=== PATIENT | male | born 1950 | race African-American/Black ===

== ENCOUNTER 2017-02-18 11:39 | Emergency (ER) | payer OTHER, BC ==
[~2017-02-18] VITALS: Ht 180.3 cm; Wt 138.2 kg
[2017-02-18 12:13] LABS: POINT-OF-CARE METER ID UU13113778; POINT-OF-CARE USER ID NUTJLF39
[2017-02-18 14:43] LABS: HEMATOCRIT 37.8 % (38.0-50.0); MCH 28.2 PG (29.0-34.0); MCHC 32.5 G/DL (30.0-36.0); MCV 86.7 FL (86-99); MEAN PLAT.VOLUME 9.2 uM^3 (9.0-12.4); PLATELET COUNT 296 K/uL (156-360); RBC DIS.WIDTH-CV 13.9 % (11.8-14.6); RBC DIS.WIDTH-SD 44.5 % (39-53); RED BLOOD COUNT 4.36 M/uL (4.00-5.50); WHITE BLOOD COUNT 6.5 K/uL (4.1-10.2)
[2017-02-18 14:55] LABS: INTER. NORMALIZED RATIO 1.1; PROTHROMBIN TIME 10.8 (9.2-11.2)
[2017-02-18 15:00] LABS: LIPASE 34 U/L (1.0-51.0)
[2017-02-18 15:04] LABS: TROP-I INTERPRETATION NEGATIVE; TROPONIN-I 0.01 ng/mL (0.0-0.30)
[2017-02-18 15:09] LABS: CHLORIDE 103 mEq/L (99-109); POTASSIUM 4.1 mEq/L (3.7-5.4); SODIUM 140 mEq/L (136-147)
[2017-02-18 15:12] LABS: ANION GAP 10 MEQ/L (2-14)
[2017-02-18 15:13] LABS: TOTAL BILIRUBIN 0.6 mg/dL (0.0-1.0)
[2017-02-18 15:15] LABS: ALKALINE PHOSPHATASE 61 IU/L (3-129); GFR ESTIMATE (CALCULATED) 52 mL/min/; GLUCOSE 77 mg/dL (70-99)
[2017-02-18 15:16] LABS: UREA NITROGEN (BUN) 21 mg/dL (9-23)
[2017-02-18 17:28] VITALS: BP 143/87
== END 2017-02-18 17:51 | disposition home or self-care (01) ==
LOC: EME 11:39
PROVIDERS: Emergency Medicine
DX: E11.65 Type 2 diabetes mellitus with hyperglycemia (principal); M79.605 Pain in left leg; Z79.4 Long term (current) use of insulin; Z86.718 Personal history of other venous thrombosis and embolism; R11.0 Nausea; R60.0 Localized edema
CPT/HCPCS: 71010; 80053; 82948; 83690; 84484; 85027; 85610; 93005; 93971; 94640; 99281; 99284

== ENCOUNTER 2017-03-28 05:54 | Emergency (ER) | payer OTHER, BC ==
[~2017-03-28] VITALS: Ht 185.4 cm; Wt 138.0 kg
[2017-03-28 06:46] LABS: EOSINOPHIL (%) 4.4 % (0-5); EOSINOPHIL COUNT 0.2 K/uL (0-0.3); HEMATOCRIT 35.1 % (38.0-50.0); IMMATURE GRANULOCYTE (%) 0.2 % (0.0-0.7); INSTRUMENT ABS NEUTROPHIL CT 2.6 K/uL; LYMPHOCYTE COUNT 1.9 K/uL (1.0-2.8); MCH 28.9 PG (29.0-34.0); MCHC 33.9 G/DL (30.0-36.0); MCV 85.2 FL (86-99); MEAN PLAT.VOLUME 9.1 uM^3 (9.0-12.4); MONOCYTE (%) 10.8 % (3-12); MONOCYTE COUNT 0.6 K/uL (0-0.8); NEUTROPHIL (%) 48.5 % (45-76); NEUTROPHIL COUNT 2.6 K/uL (1.8-6.4); PLATELET COUNT 270 K/uL (156-360); RBC DIS.WIDTH-CV 13.6 % (11.8-14.6); RBC DIS.WIDTH-SD 42.9 % (39-53); RED BLOOD COUNT 4.12 M/uL (4.00-5.50); WHITE BLOOD COUNT 5.4 K/uL (4.1-10.2)
[2017-03-28 07:20] LABS: ANION GAP 11 MEQ/L (2-14); CHLORIDE 102 MEQ/L (99-109); GFR ESTIMATE (CALCULATED) 41 mL/min/; GLUCOSE 181 mg/dL (70-99); POTASSIUM 4.1 MEQ/L (3.7-5.4); SAMPLE HEMOLYSIS CHECK 0; SAMPLE ICTERIC CHECK 0; SAMPLE LIPEMIA CHECK 0; SODIUM 136 MEQ/L (136-147); UREA NITROGEN (BUN) 34 mg/dL (9-23); URIC ACID 8.8 mg/dL (3.1-9.2)
[2017-03-28] MEDS ORDERED: PERCOCET 5/31 TABLET PO (08:04)
[2017-03-28 08:19] VITALS: BP 128/83
== END 2017-03-28 08:30 | disposition home or self-care (01) ==
LOC: EME 05:54
PROVIDERS: Emergency Medicine
DX: M17.12 Unilateral primary osteoarthritis, left knee (principal); I10 Essential (primary) hypertension; E11.9 Type 2 diabetes mellitus without complications; Z88.0 Allergy status to penicillin
CPT/HCPCS: 73564; 80048; 84550; 85025; 99281; 99283

== ENCOUNTER 2017-04-04 20:22 | Emergency (ER) | payer OTHER, BC ==
[~2017-04-04] VITALS: Ht 185.4 cm; Wt 138.1 kg
[~2017-04-04 20:22] MED LIST: PERCOCET 5/31 TABLET PO
[2017-04-04 22:08] LABS: HEMATOCRIT 36.7 % (38.0-50.0); MCH 28.7 PG (29.0-34.0); MCHC 33.5 G/DL (30.0-36.0); MCV 85.7 FL (86-99); MEAN PLAT.VOLUME 9.4 uM^3 (9.0-12.4); PLATELET COUNT 299 K/uL (156-360); RBC DIS.WIDTH-CV 13.3 % (11.8-14.6); RBC DIS.WIDTH-SD 41.9 % (39-53); RED BLOOD COUNT 4.28 M/uL (4.00-5.50); WHITE BLOOD COUNT 7.2 K/uL (4.1-10.2)
[2017-04-04 22:20] LABS: CHLORIDE 106 mEq/L (99-109); POTASSIUM 4.6 mEq/L (3.7-5.4); SODIUM 137 mEq/L (136-147)
[2017-04-04 22:22] LABS: GLUCOSE 128 mg/dL (70-99)
[2017-04-04 22:23] LABS: ANION GAP 8 MEQ/L (2-14)
[2017-04-04 22:24] LABS: TOTAL BILIRUBIN 0.2 mg/dL (0.0-1.0)
[2017-04-04 22:26] LABS: ALKALINE PHOSPHATASE 58 IU/L (3-129); GFR ESTIMATE (CALCULATED) 43 mL/min/
[2017-04-04 22:27] LABS: UREA NITROGEN (BUN) 29 mg/dL (9-23)
[2017-04-04 22:29] LABS: URIC ACID 8.6 mg/dL (3.1-9.2)
[2017-04-05 01:08] VITALS: BP 137/79
[2017-04-05 02:17] LABS: C-REACTIVE PROTEIN 16.8 MG/L (0-10)
== END 2017-04-05 01:21 | disposition home or self-care (01) ==
LOC: EME 20:22
PROVIDERS: Physician Assistant
DX: M71.22 Synovial cyst of popliteal space [Baker], left knee (principal); N28.9 Disorder of kidney and ureter, unspecified; E78.5 Hyperlipidemia, unspecified; I10 Essential (primary) hypertension
CPT/HCPCS: 80053; 84550; 85027; 86140; 93971; 99281; 99285; J2270; J2405; S0020

== ENCOUNTER 2017-04-09 15:07 | Emergency (ER) | payer OTHER, BC ==
[~2017-04-09] VITALS: Ht 182.9 cm; Wt 132.7 kg
[2017-04-09 15:55] LABS: HEMATOCRIT 35.5 % (38.0-50.0); MCH 28.6 PG (29.0-34.0); MCHC 33.8 G/DL (30.0-36.0); MCV 84.5 FL (86-99); MEAN PLAT.VOLUME 9.5 uM^3 (9.0-12.4); PLATELET COUNT 259 K/uL (156-360); RBC DIS.WIDTH-CV 13.2 % (11.8-14.6); RBC DIS.WIDTH-SD 40.7 % (39-53); WHITE BLOOD COUNT 7.3 K/uL (4.1-10.2)
[2017-04-09 16:07] LABS: INTER. NORMALIZED RATIO 1.1; PROTHROMBIN TIME 11.4 (9.2-11.2)
[2017-04-09 16:21] LABS: ANION GAP 13 MEQ/L (2-14); CHLORIDE 103 MEQ/L (99-109); GFR ESTIMATE (CALCULATED) 52 mL/min/; GLUCOSE 216 mg/dL (70-99); SAMPLE HEMOLYSIS CHECK 0; SAMPLE ICTERIC CHECK 0; SAMPLE LIPEMIA CHECK 0; SODIUM 136 MEQ/L (136-147); UREA NITROGEN (BUN) 18 mg/dL (9-23)
[2017-04-09 16:24] LABS: POTASSIUM 3.4 MEQ/L (3.7-5.4)
[2017-04-09 16:26] LABS: TROP-I INTERPRETATION NEGATIVE; TROPONIN-I 0.01 ng/mL (0.0-0.30)
[2017-04-09 16:44] LABS: D-DIMER ELISA 1.64 mg/L FEU (< 0.57)
[2017-04-09] MEDS ORDERED: LEVAQUIN750 MG PO (18:47)
[2017-04-09 19:10] VITALS: BP 158/78
== END 2017-04-09 19:11 | disposition home or self-care (01) ==
LOC: EME 15:07
PROVIDERS: Emergency Medicine
DX: J18.9 Pneumonia, unspecified organism (principal); E78.5 Hyperlipidemia, unspecified; I10 Essential (primary) hypertension
CPT/HCPCS: 71020; 71275; 80048; 84484; 85027; 85379; 85610; 85730; 93005; 99281; 99285; J7030; J7644

== ENCOUNTER 2017-04-10 15:43 | Observation (INO) | payer OTHER, BC ==
[~2017-04-10] VITALS: Ht 185.4 cm; Wt 131.8 kg
[~2017-04-10 15:43] MED LIST changes: +LEVAQUIN750 MG PO
[2017-04-10 16:23] LABS: HEMATOCRIT 34.8 % (38.0-50.0); MCH 28.5 PG (29.0-34.0); MCHC 33.9 G/DL (30.0-36.0); MCV 84.1 FL (86-99); MEAN PLAT.VOLUME 9.2 uM^3 (9.0-12.4); PLATELET COUNT 269 K/uL (156-360); RBC DIS.WIDTH-CV 13.2 % (11.8-14.6); RED BLOOD COUNT 4.14 M/uL (4.00-5.50); WHITE BLOOD COUNT 8.1 K/uL (4.1-10.2)
[2017-04-10 16:24] LABS: CHLORIDE 109 mEq/L (99-109)
[2017-04-10 16:28] LABS: ANION GAP 14 MEQ/L (2-14)
[2017-04-10 16:30] LABS: ALKALINE PHOSPHATASE 52 IU/L (3-129); GFR ESTIMATE (CALCULATED) 43 mL/min/
[2017-04-10 16:31] LABS: UREA NITROGEN (BUN) 17 mg/dL (9-23)
[2017-04-10 16:34] LABS: GLUCOSE 73 mg/dL (70-99); POTASSIUM 4.2 mEq/L (3.7-5.4); SODIUM 143 mEq/L (136-147); TOTAL BILIRUBIN 0.6 mg/dL (0.0-1.0)
[2017-04-10 16:36] LABS: TROP-I INTERPRETATION NEGATIVE; TROPONIN-I 0.01 ng/mL (0.0-0.30)
[2017-04-10 21:58] LABS: IRON 73 MCG/DL (35-150)
[2017-04-10 22:11] VITALS: BP 134/79
[2017-04-10 22:35] LABS: POINT-OF-CARE METER ID UU13113831
[2017-04-11 00:07] LABS: TROP-I INTERPRETATION NEGATIVE; TROPONIN-I < 0.01 ng/mL (0.0-0.30)
[2017-04-11 04:40] VITALS: BP 139/70
[2017-04-11 05:17] LABS: TROP-I INTERPRETATION NEGATIVE; TROPONIN-I < 0.01 ng/mL (0.0-0.30)
[2017-04-11 05:49] LABS: HEMATOCRIT 31.2 % (38.0-50.0); MCH 29.8 PG (29.0-34.0); MCHC 34.6 G/DL (30.0-36.0); MCV 86.2 FL (86-99); MEAN PLAT.VOLUME 9.8 uM^3 (9.0-12.4); PLATELET COUNT 241 K/uL (156-360); RBC DIS.WIDTH-CV 13.6 % (11.8-14.6); RBC DIS.WIDTH-SD 42.8 % (39-53); RED BLOOD COUNT 3.62 M/uL (4.00-5.50)
[2017-04-11 06:33] LABS: ANION GAP 9 MEQ/L (2-14); CHLORIDE 105 MEQ/L (99-109); GFR ESTIMATE (CALCULATED) 35 mL/min/; POTASSIUM 3.8 MEQ/L (3.7-5.4); SAMPLE HEMOLYSIS CHECK 0; SAMPLE ICTERIC CHECK 0; SAMPLE LIPEMIA CHECK 0; SODIUM 137 MEQ/L (136-147); UREA NITROGEN (BUN) 21 mg/dL (9-23)
[2017-04-11 06:34] LABS: GLUCOSE 160 mg/dL (70-99)
[2017-04-11 08:18] LABS: POINT-OF-CARE METER ID UU14162513
[2017-04-11 08:42] VITALS: BP 137/71
[2017-04-11 10:55] LABS: HEMATOCRIT 31.8 % (38.0-50.0); MCV 86.4 FL (86-99)
[2017-04-11] MEDS ORDERED: CYANOCOBALAM1000 MCG PO (11:09)
[2017-04-11] MEDS ORDERED: VITAMIN B-6100 MG PO (11:09)
[2017-04-11] MEDS ORDERED: TRAMADOL HCL50 MG PO (11:10)
[2017-04-11] MEDS ORDERED: ADVAIR 250/501 DISK PO (11:11)
[2017-04-11] MEDS ORDERED: LOPRESSOR25 MG PO (11:12)
[2017-04-11] MEDS ORDERED: LANTUS 10100 UNITS/ SQ (11:12)
[2017-04-11] MEDS ORDERED: SENNA LAXATIVE25 MG PO (11:13)
[2017-04-11] MEDS ORDERED: ZYRTEC10 M2 PO (11:15)
[2017-04-11] MEDS ORDERED: SERTRALINE HCL50 MG PO (11:16)
[2017-04-11] MEDS ORDERED: IMDUR30 MG PO (11:17)
[2017-04-11] MEDS ORDERED: SIMVASTATIN40 MG PO (11:17)
[2017-04-11] MEDS ORDERED: ZAFIRLUKAST20 M1 PO (11:18)
[2017-04-11] MEDS ORDERED: LOSARTAN POTAS100 MG PO (11:19)
[2017-04-11] MEDS ORDERED: CLOPIDOGREL75 MG PO (11:19)
[2017-04-11] MEDS ORDERED: REPAGLINIDE1 MG PO (11:21)
[2017-04-11 11:22] LABS: ANION GAP 9 MEQ/L (2-14); CHLORIDE 105 MEQ/L (99-109); GFR ESTIMATE (CALCULATED) 37 mL/min/; GLUCOSE 211 mg/dL (70-99); POTASSIUM 4.2 MEQ/L (3.7-5.4); SAMPLE HEMOLYSIS CHECK 0; SAMPLE ICTERIC CHECK 0; SAMPLE LIPEMIA CHECK 0; SODIUM 135 MEQ/L (136-147); UREA NITROGEN (BUN) 22 mg/dL (9-23)
[2017-04-11] MEDS ORDERED: STOOL SOFTENER100 MG PO (11:52)
[2017-04-11] MEDS ORDERED: PRILOSEC20 MG PO (11:52)
[2017-04-11 12:17] VITALS: BP 159/75
[2017-04-11 12:44] LABS: POINT-OF-CARE METER ID UU13113831
== END 2017-04-11 13:54 | disposition home or self-care (01) ==
LOC: EME 15:43 → EDOF 20:21 → 5WEST 21:50
PROVIDERS: Hospitalist; Physician Assistant Medical; Student in an Organized Health Care Education/Training Program
DX: R07.9 Chest pain, unspecified (principal); J18.9 Pneumonia, unspecified organism; M71.20 Synovial cyst of popliteal space [Baker], unspecified knee; E11.65 Type 2 diabetes mellitus with hyperglycemia; E11.42 Type 2 diabetes mellitus with diabetic polyneuropathy; I10 Essential (primary) hypertension; E66.01 Morbid (severe) obesity due to excess calories; Z68.38 Body mass index [BMI] 38.0-38.9, adult; G47.33 Obstructive sleep apnea (adult) (pediatric); E78.5 Hyperlipidemia, unspecified; R10.13 Epigastric pain; R11.0 Nausea; R06.02 Shortness of breath; E86.0 Dehydration; D64.9 Anemia, unspecified; Z83.3 Family history of diabetes mellitus; Z82.5 Family history of asthma and other chronic lower respiratory diseases; Z88.0 Allergy status to penicillin
CPT/HCPCS: 71020; 80048; 80048 91; 80053; 82272; 82948; 83540; 84443; 84466; 84484; 85014; 85018; 85027; 93005; 94660; 99202; 99281; 99285; G0378; J1644; J1815; J1885; J2405; J7030

== ENCOUNTER → 2017-06-30 | Outpatient (CLI) | payer OTHER, BC ==
[~2017-06-30] MED LIST changes: +ADVAIR 250/501 DISK PO; +CLOPIDOGREL75 MG PO; +CYANOCOBALAM1000 MCG PO; +IMDUR30 MG PO; +LANTUS 10100 UNITS/ SQ; +LOPRESSOR25 MG PO; +LOSARTAN POTAS100 MG PO; +PRILOSEC20 MG PO; +REPAGLINIDE1 MG PO; +SENNA LAXATIVE25 MG PO; +SERTRALINE HCL50 MG PO; +SIMVASTATIN40 MG PO; +STOOL SOFTENER100 MG PO; +TRAMADOL HCL50 MG PO; +VITAMIN B-6100 MG PO; +ZAFIRLUKAST20 M1 PO; +ZYRTEC10 M2 PO
== END | disposition home or self-care (01) ==
LOC: RES 13:00
DX: J45.909 Unspecified asthma, uncomplicated (principal)
CPT/HCPCS: 94060; 94726; 94729

== ENCOUNTER 2017-08-30 01:32 | Emergency (ER) | payer OTHER, BC ==
[~2017-08-30] VITALS: Ht 185.4 cm; Wt 135.4 kg
[2017-08-30] MEDS ORDERED: ROPINIROLE HCL1 MG PO (02:06)
[2017-08-30] MEDS ORDERED: SERTRALINE HCL100 MG PO (02:07)
[2017-08-30] MEDS ORDERED: FUROSEMIDE20 MG PO (02:07)
[2017-08-30 02:09] LABS: POINT-OF-CARE METER ID UU13113778; POINT-OF-CARE USER ID 611181311
[2017-08-30 02:17] LABS: HEMATOCRIT 34.6 % (38.0-50.0); MCHC 32.7 G/DL (30.0-36.0); MCV 88.7 FL (86-99); MEAN PLAT.VOLUME 9.3 uM^3 (9.0-12.4); PLATELET COUNT 277 K/uL (156-360); RBC DIS.WIDTH-CV 13.5 % (11.8-14.6); WHITE BLOOD COUNT 6.9 K/uL (4.1-10.2)
[2017-08-30] MEDS ORDERED: NOVOLIN,HU100 UNITS/ SC (02:20)
[2017-08-30 02:31] LABS: CHLORIDE 104 mEq/L (99-109); SODIUM 138 mEq/L (136-147)
[2017-08-30 02:33] LABS: GLUCOSE 74 mg/dL (70-99)
[2017-08-30 02:34] LABS: ANION GAP 9 MEQ/L (2-14)
[2017-08-30 02:37] LABS: GFR ESTIMATE (CALCULATED) 43 mL/min/
[2017-08-30 02:38] LABS: UREA NITROGEN (BUN) 28 mg/dL (9-23)
[2017-08-30 04:59] LABS: TROP-I INTERPRETATION NEGATIVE; TROPONIN-I 0.04 ng/mL (0.0-0.30)
[2017-08-30 07:28] LABS: TROP-I INTERPRETATION NEGATIVE; TROPONIN-I 0.01 ng/mL (0.0-0.30)
[2017-08-30 07:55] VITALS: BP 147/83
== END 2017-08-30 08:00 | disposition home or self-care (01) ==
LOC: EME 01:32
PROVIDERS: Emergency Medicine
DX: R06.00 Dyspnea, unspecified (principal); R04.0 Epistaxis; J44.9 Chronic obstructive pulmonary disease, unspecified; I12.9 Hypertensive chronic kidney disease with stage 1 through stage 4 chronic kidney disease, or unspecified chronic kidney disease; N18.9 Chronic kidney disease, unspecified; Z77.22 Contact with and (suspected) exposure to environmental tobacco smoke (acute) (chronic); E78.5 Hyperlipidemia, unspecified; Z79.01 Long term (current) use of anticoagulants; F32.9 Major depressive disorder, single episode, unspecified; K21.9 Gastro-esophageal reflux disease without esophagitis; F41.9 Anxiety disorder, unspecified; Z88.0 Allergy status to penicillin
CPT/HCPCS: 71020; 80048; 82948; 83880; 84484; 85027; 93005; 99281; 99284

== ENCOUNTER 2017-09-24 09:08 | Inpatient (IN) | payer OTHER, BC ==
[~2017-09-24] VITALS: Ht 185.4 cm; Wt 119.9 kg
[~2017-09-24 09:08] MED LIST changes: +FUROSEMIDE20 MG PO; +NOVOLIN,HU100 UNITS/ SC; +ROPINIROLE HCL1 MG PO; +SERTRALINE HCL100 MG PO
[2017-09-24 10:43] LABS: EOSINOPHIL (%) 3.6 % (0-5); EOSINOPHIL COUNT 0.2 K/uL (0-0.3); HEMATOCRIT 34.2 % (38.0-50.0); IMMATURE GRANULOCYTE (%) 0.2 % (0.0-0.7); INSTRUMENT ABS NEUTROPHIL CT 2.6 K/uL; LYMPHOCYTE COUNT 1.6 K/uL (1.0-2.8); MCH 29.3 PG (29.0-34.0); MCHC 33.3 G/DL (30.0-36.0); MCV 87.9 FL (86-99); MEAN PLAT.VOLUME 9.5 uM^3 (9.0-12.4); MONOCYTE (%) 9.8 % (3-12); MONOCYTE COUNT 0.5 K/uL (0-0.8); NEUTROPHIL (%) 53.4 % (45-76); NEUTROPHIL COUNT 2.6 K/uL (1.8-6.4); PLATELET COUNT 250 K/uL (156-360); RBC DIS.WIDTH-CV 13.7 % (11.8-14.6); RBC DIS.WIDTH-SD 44.3 % (39-53); RED BLOOD COUNT 3.89 M/uL (4.00-5.50); WHITE BLOOD COUNT 4.8 K/uL (4.1-10.2)
[2017-09-24 11:04] LABS: TROP-I INTERPRETATION NEGATIVE; TROPONIN-I < 0.01 ng/mL (0.0-0.30)
[2017-09-24 11:41] LABS: CK-MB 2.1 ng/mL (0.0-4.9)
[2017-09-24 11:46] LABS: ERTH.SED.RATE 49 MM/HR (0-20)
[2017-09-24 12:47] LABS: ALKALINE PHOSPHATASE 45 IU/L (3-129); ANION GAP 10 MEQ/L (2-14); CHLORIDE 104 MEQ/L (99-109); CREATINE KINASE 316 IU/L (1-294); GFR ESTIMATE (CALCULATED) 56 mL/min/ (58.99-99999); GLUCOSE 100 mg/dL (70-99); MAGNESIUM 1.6 mg/dl (1.3-2.7); POTASSIUM 4.2 MEQ/L (3.7-5.4); SAMPLE HEMOLYSIS CHECK 0; SAMPLE ICTERIC CHECK 0; SAMPLE LIPEMIA CHECK 0; SODIUM 139 MEQ/L (136-147); TOTAL BILIRUBIN 0.5 MG/DL (0.0-1.0); TOTAL CK 316 IU/L (1-294); UREA NITROGEN (BUN) 20 mg/dL (9-23)
[2017-09-24] MEDS ORDERED: COLACE100 MG PO (13:42)
[2017-09-24] MEDS ORDERED: NOVOLIN,HU100 UNITS/ SC (13:43)
[2017-09-24] MEDS ORDERED: TESSALON200 MG PO (13:45)
[2017-09-24] MEDS ORDERED: SYMBICORT60 INHALAT IH (13:45)
[2017-09-24] MEDS ORDERED: LEVAQUIN500 MG PO (13:47)
[2017-09-24 15:17] VITALS: BP 167/81
[2017-09-24 15:32] LABS: POINT-OF-CARE METER ID UU14174225
[2017-09-24 17:10] LABS: POINT-OF-CARE METER ID UU14174225
[2017-09-24 21:59] LABS: POINT-OF-CARE METER ID UU13113717
[2017-09-25 00:35] VITALS: BP 154/71
[2017-09-25 05:59] LABS: HEMATOCRIT 35.9 % (38.0-50.0); MCHC 33.1 G/DL (30.0-36.0); MCV 87.3 FL (86-99); MEAN PLAT.VOLUME 9.8 uM^3 (9.0-12.4); PLATELET COUNT 269 K/uL (156-360); RBC DIS.WIDTH-CV 13.5 % (11.8-14.6); RBC DIS.WIDTH-SD 44.1 % (39-53); RED BLOOD COUNT 4.11 M/uL (4.00-5.50); WHITE BLOOD COUNT 7.1 K/uL (4.1-10.2)
[2017-09-25 06:24] LABS: ANION GAP 8 MEQ/L (2-14); CHLORIDE 100 MEQ/L (99-109); GFR ESTIMATE (CALCULATED) 49 mL/min/ (58.99-99999); SAMPLE HEMOLYSIS CHECK 0; SAMPLE ICTERIC CHECK 0; SAMPLE LIPEMIA CHECK 0; UREA NITROGEN (BUN) 28 mg/dL (9-23)
[2017-09-25 06:28] LABS: GLUCOSE 229 mg/dL (70-99); SODIUM 132 MEQ/L (136-147)
[2017-09-25 07:37] VITALS: BP 158/74
[2017-09-25 07:38] LABS: POINT-OF-CARE METER ID UU14174225
[2017-09-25 12:10] LABS: POINT-OF-CARE METER ID UU14174225
[2017-09-25 16:03] VITALS: BP 171/71
[2017-09-25 17:31] LABS: POINT-OF-CARE METER ID UU13113717
[2017-09-25 20:41] LABS: POINT-OF-CARE METER ID UU13113717; POINT-OF-CARE USER ID 609231305
[2017-09-25 23:23] VITALS: BP 165/74
[2017-09-26 08:00] VITALS: BP 149/88
[2017-09-26 08:26] LABS: POINT-OF-CARE METER ID UU14174225
[2017-09-26 12:57] LABS: POINT-OF-CARE METER ID UU13113717
[2017-09-26 16:00] VITALS: BP 179/85
[2017-09-26 17:02] LABS: POINT-OF-CARE METER ID UU13113717
[2017-09-26 20:34] LABS: POINT-OF-CARE METER ID UU14174225; POINT-OF-CARE USER ID 609231305
[2017-09-26 21:20] VITALS: BP 168/79
[2017-09-26 23:33] VITALS: BP 173/78
[2017-09-26 23:57] VITALS: BP 136/70
[2017-09-27 09:09] LABS: POINT-OF-CARE METER ID UU14174225
[2017-09-27 09:15] VITALS: BP 163/75
[2017-09-27 12:28] LABS: POINT-OF-CARE METER ID UU13113717
[2017-09-27 16:45] VITALS: BP 162/76
[2017-09-27 17:40] LABS: POINT-OF-CARE METER ID UU14174225
[2017-09-27 21:16] LABS: POINT-OF-CARE METER ID UU13113717
[2017-09-28 00:06] VITALS: BP 14180/7; BP 180/79
[2017-09-28 07:54] LABS: POINT-OF-CARE METER ID UU13113717
[2017-09-28 07:56] VITALS: BP 151/72
[2017-09-28] MEDS ORDERED: DELTASONE20 M1 PO (09:17)
[2017-09-28] MEDS ORDERED: NOVOLIN,HU100 UNITS1 SC (09:21)
[2017-09-28] MEDS ORDERED: TRAMADOL HCL50 MG PO (09:21)
== END 2017-09-28 11:42 | disposition home or self-care (01) | DRG 517 ==
LOC: EME 09:08 → EDOF 13:37 → 5SOUTH 13:37 → ENRESERV 13:38 → EDOF 13:58 → ENRESERV 14:00 → 5SOUTH 15:10 → ENPENDDIS 09-28 → 5SOUTH 09-28 11:42
PROVIDERS: Emergency Medicine; Internal Medicine
PROC: 5A09357 Assistance with Respiratory Ventilation, Less than 24 Consecutive Hours, Continuous Positive Airway Pressure (ICD-10-PCS; 2017-09-24)
PROC: 03BT0ZX Excision of Left Temporal Artery, Open Approach, Diagnostic (ICD-10-PCS; principal; 2017-09-27)
DX: M31.6 Other giant cell arteritis (principal); G43.519 Persistent migraine aura without cerebral infarction, intractable, without status migrainosus; I12.9 Hypertensive chronic kidney disease with stage 1 through stage 4 chronic kidney disease, or unspecified chronic kidney disease; N18.3 Chronic kidney disease, stage 3 (moderate); G47.33 Obstructive sleep apnea (adult) (pediatric); E11.22 Type 2 diabetes mellitus with diabetic chronic kidney disease; E66.9 Obesity, unspecified; J44.9 Chronic obstructive pulmonary disease, unspecified; E78.5 Hyperlipidemia, unspecified; E78.00 Pure hypercholesterolemia, unspecified; G25.81 Restless legs syndrome; K21.9 Gastro-esophageal reflux disease without esophagitis; M19.90 Unspecified osteoarthritis, unspecified site; I25.10 Atherosclerotic heart disease of native coronary artery without angina pectoris; Z68.34 Body mass index [BMI] 34.0-34.9, adult; Z83.3 Family history of diabetes mellitus; M26.622 Arthralgia of left temporomandibular joint
CPT/HCPCS: 70450; 80048; 80053; 82550; 82553; 82948; 83735; 84484; 85025; 85027; 85651; 86140; 86141; 88305; 88313; 93005; 94660; 99281; 99285; J1650; J1815; J2270; J2930; J7030; J7050

== ENCOUNTER 2017-11-01 16:37 | Emergency (ER) | payer OTHER ==
[~2017-11-01] VITALS: Ht 185.4 cm; Wt 131.5 kg
[~2017-11-01 16:37] MED LIST changes: +COLACE100 MG PO; +DELTASONE20 M1 PO; +LEVAQUIN500 MG PO; +NOVOLIN,HU100 UNITS1 SC; +SYMBICORT60 INHALAT IH; +TESSALON200 MG PO
[2017-11-01 17:10] LABS: HEMATOCRIT 35.4 % (38.0-50.0); MCH 29.3 PG (29.0-34.0); MCHC 33.9 G/DL (30.0-36.0); MCV 86.3 FL (86-99); PLATELET COUNT 239 K/uL (156-360); RBC DIS.WIDTH-CV 13.8 % (11.8-14.6); RBC DIS.WIDTH-SD 43.5 % (39-53); WHITE BLOOD COUNT 8.6 K/uL (4.1-10.2)
[2017-11-01 17:21] LABS: CHLORIDE 105 mEq/L (99-109); POTASSIUM 4.2 mEq/L (3.7-5.4); SODIUM 136 mEq/L (136-147)
[2017-11-01 17:23] LABS: GLUCOSE 100 mg/dL (70-99)
[2017-11-01 17:28] LABS: UREA NITROGEN (BUN) 27 mg/dL (9-23)
[2017-11-01 17:52] LABS: CREATININE 1.7 mg/dL (0.6-1.3); GFR ESTIMATE (CALCULATED) 52 mL/min/ (58.99-99999)
[2017-11-02] MEDS ORDERED: TYLENOL WITH C1 EACH PO (00:53)
[2017-11-02 01:30] VITALS: BP 119/82
== END 2017-11-02 01:30 | disposition home or self-care (01) ==
LOC: EXP 16:37 → EME 16:37 → EXP 11-02 01:30
DX: S81.801A Unspecified open wound, right lower leg, initial encounter (principal); I87.8 Other specified disorders of veins; E11.22 Type 2 diabetes mellitus with diabetic chronic kidney disease; N18.9 Chronic kidney disease, unspecified; I12.9 Hypertensive chronic kidney disease with stage 1 through stage 4 chronic kidney disease, or unspecified chronic kidney disease; J44.9 Chronic obstructive pulmonary disease, unspecified; E78.5 Hyperlipidemia, unspecified; K21.9 Gastro-esophageal reflux disease without esophagitis; F41.9 Anxiety disorder, unspecified; F32.9 Major depressive disorder, single episode, unspecified; Z88.0 Allergy status to penicillin; Z79.4 Long term (current) use of insulin
CPT/HCPCS: 73590; 80048; 82948; 85027; 87070; 87075; 87205; 99281; 99284; J0696; J2405

== ENCOUNTER 2017-11-04 12:48 | Emergency (ER) | payer OTHER ==
[~2017-11-04] VITALS: Ht 185.4 cm; Wt 130.0 kg
[~2017-11-04 12:48] MED LIST changes: +TYLENOL WITH C1 EACH PO
[2017-11-04 14:06] LABS: BASOPHIL (%) 0.4 % (0-1); EOSINOPHIL (%) 0.6 % (0-5); EOSINOPHIL COUNT 0.1 K/uL (0-0.3); HEMATOCRIT 32.8 % (38.0-50.0); HEMOGLOBIN 11.2 G/DL (12.5-16.6); IMMATURE GRANULOCYTE (%) 0.6 % (0.0-0.7); LYMPHOCYTE (%) 14.1 % (15-42); LYMPHOCYTE COUNT 1.1 K/uL (1.0-2.8); MCH 29.2 PG (29.0-34.0); MCHC 34.1 G/DL (30.0-36.0); MCV 85.6 FL (86-99); MONOCYTE (%) 9.4 % (3-12); MONOCYTE COUNT 0.7 K/uL (0-0.8); NEUTROPHIL (%) 74.9 % (45-76); NEUTROPHIL COUNT 5.9 K/uL (1.8-6.4); PLATELET COUNT 205 K/uL (156-360); RBC DIS.WIDTH-CV 13.7 % (11.8-14.6); RBC DIS.WIDTH-SD 42.6 % (39-53); RED BLOOD COUNT 3.83 M/uL (4.00-5.50); WHITE BLOOD COUNT 7.9 K/uL (4.1-10.2)
[2017-11-04 14:18] LABS: ALBUMIN 3.7 g/dL (3.2-4.8)
[2017-11-04 14:19] LABS: CHLORIDE 103 mEq/L (99-109); POTASSIUM 4.5 mEq/L (3.7-5.4); SODIUM 134 mEq/L (136-147)
[2017-11-04 14:21] LABS: GLUCOSE 91 mg/dL (70-99); TOTAL PROTEIN 6.8 g/dL (6.4-8.3)
[2017-11-04 14:23] LABS: TOTAL BILIRUBIN 0.2 mg/dL (0.0-1.0)
[2017-11-04 14:24] LABS: ALKALINE PHOSPHATASE 52 IU/L (3-129)
[2017-11-04 14:25] LABS: CREATININE 1.8 mg/dL (0.6-1.3); GFR ESTIMATE (CALCULATED) 49 mL/min/ (58.99-99999)
[2017-11-04 14:26] LABS: AST (GOT) 45 IU/L (2-34); UREA NITROGEN (BUN) 30 mg/dL (9-23)
[2017-11-04 14:27] LABS: ALT (GPT) 36 IU/L (3-49)
[2017-11-04 14:28] LABS: LIPASE 13 U/L (1.0-51.0)
[2017-11-04 17:29] VITALS: BP 154/76
== END 2017-11-04 17:30 | disposition home or self-care (01) ==
LOC: EME 12:48
PROVIDERS: Emergency Medicine
DX: K59.00 Constipation, unspecified (principal); J44.9 Chronic obstructive pulmonary disease, unspecified; E11.22 Type 2 diabetes mellitus with diabetic chronic kidney disease; I12.9 Hypertensive chronic kidney disease with stage 1 through stage 4 chronic kidney disease, or unspecified chronic kidney disease; N18.9 Chronic kidney disease, unspecified; E78.5 Hyperlipidemia, unspecified; K21.9 Gastro-esophageal reflux disease without esophagitis; F41.9 Anxiety disorder, unspecified; F32.9 Major depressive disorder, single episode, unspecified; Z79.4 Long term (current) use of insulin; Z88.0 Allergy status to penicillin
CPT/HCPCS: 74022; 80053; 83690; 85025; 93005; 99281; 99285; J0696

== ENCOUNTER → 2017-12-15 | Outpatient (CLI) | payer OTHER ==
[~2017-12-15] MED LIST changes: +B-12500 MC1 PO; -CYANOCOBALAM1000 MCG PO; +EXTRA STRENGTH500 M1 PO; +LO-DOSE ASPIRIN81 M1 PO; +PROAIR HFA8.5 GM IH; +ZANTAC150 MG PO
== END | disposition home or self-care (01) ==
LOC: PICC 09:13
DX: M86.9 Osteomyelitis, unspecified (principal); Z88.0 Allergy status to penicillin
CPT/HCPCS: 76937

== ENCOUNTER 2017-12-17 08:58 | Observation (INO) | payer OTHER, BC ==
[~2017-12-17] VITALS: Ht 185.4 cm; Wt 136.3 kg
[~2017-12-17 08:58] MED LIST changes: -PROAIR HFA8.5 GM IH
[2017-12-17 10:03] LABS: HEMATOCRIT 32.4 % (38.0-50.0); HEMOGLOBIN 10.6 G/DL (12.5-16.6); MCH 29.3 PG (29.0-34.0); MCHC 32.7 G/DL (30.0-36.0); MCV 89.5 FL (86-99); PLATELET COUNT 250 K/uL (156-360); RBC DIS.WIDTH-CV 15.2 % (11.8-14.6); RED BLOOD COUNT 3.62 M/uL (4.00-5.50); WHITE BLOOD COUNT 5.2 K/uL (4.1-10.2)
[2017-12-17 10:08] LABS: INTER. NORMALIZED RATIO 1.1
[2017-12-17 10:11] LABS: PTT 35.4 SEC (25-37)
[2017-12-17 10:12] LABS: CHLORIDE 106 mEq/L (99-109); SODIUM 137 mEq/L (136-147)
[2017-12-17 10:13] LABS: GLUCOSE 127 mg/dL (70-99)
[2017-12-17 10:17] LABS: CREATININE 1.6 mg/dL (0.6-1.3); GFR ESTIMATE (CALCULATED) 56 mL/min/ (58.99-99999)
[2017-12-17 10:18] LABS: UREA NITROGEN (BUN) 17 mg/dL (9-23)
[2017-12-17 10:23] LABS: POTASSIUM 4.6 mEq/L (3.7-5.4)
[2017-12-17 10:30] LABS: TROP-I INTERPRETATION NEGATIVE; TROPONIN-I 0.02 ng/mL (0.0-0.30)
[2017-12-17] MEDS ORDERED: PROAIR HFA8.5 GM IH (15:06)
[2017-12-17] MEDS ORDERED: NOVOLIN,HU100 UNITS1 SC (15:15)
[2017-12-17 16:22] VITALS: BP 179/78
[2017-12-17 16:27] LABS: TROP-I INTERPRETATION NEGATIVE; TROPONIN-I < 0.01 ng/mL (0.0-0.30)
[2017-12-17 19:27] VITALS: BP 133/60
[2017-12-17 22:06] LABS: TROP-I INTERPRETATION NEGATIVE; TROPONIN-I < 0.01 ng/mL (0.0-0.30)
[2017-12-18 00:24] VITALS: BP 148/66
[2017-12-18 04:35] VITALS: BP 162/79
[2017-12-18 05:56] LABS: CHLORIDE 108 MEQ/L (99-109); CREATININE 1.5 MG/DL (0.6-1.3); GFR ESTIMATE (CALCULATED) > 59 mL/min/ (58.99-99999); POTASSIUM 4.1 MEQ/L (3.7-5.4); SODIUM 139 MEQ/L (136-147); UREA NITROGEN (BUN) 14 mg/dL (9-23)
[2017-12-18 06:00] LABS: GLUCOSE 66 mg/dL (70-99)
[2017-12-18 08:56] VITALS: BP 161/75
[2017-12-18 11:01] VITALS: BP 154/74
== END 2017-12-18 15:29 | disposition home or self-care (01) ==
LOC: EME 08:58 → EDOF 14:25 → ENRESERV 14:26 → 5WEST 16:08
PROVIDERS: Emergency Medicine; Internal Medicine
DX: R07.9 Chest pain, unspecified (principal); I12.9 Hypertensive chronic kidney disease with stage 1 through stage 4 chronic kidney disease, or unspecified chronic kidney disease; E11.22 Type 2 diabetes mellitus with diabetic chronic kidney disease; N18.3 Chronic kidney disease, stage 3 (moderate); E78.5 Hyperlipidemia, unspecified; Z79.4 Long term (current) use of insulin; I87.2 Venous insufficiency (chronic) (peripheral); L97.919 Non-pressure chronic ulcer of unspecified part of right lower leg with unspecified severity; L97.929 Non-pressure chronic ulcer of unspecified part of left lower leg with unspecified severity; M19.90 Unspecified osteoarthritis, unspecified site; R42 Dizziness and giddiness; Z83.3 Family history of diabetes mellitus; D64.9 Anemia, unspecified; I51.7 Cardiomegaly; R19.7 Diarrhea, unspecified; Z86.718 Personal history of other venous thrombosis and embolism; Z88.0 Allergy status to penicillin
CPT/HCPCS: 71045; 71275; 80048; 82948; 84484; 85027; 85610; 85730; 87493; 93005; 94640; 94640 76; 94660; G0378; J0692; J1644; J1815; J3010; J7030

== ENCOUNTER 2018-03-29 11:06 | Inpatient (IN) | payer OTHER, BC ==
[~2018-03-29] VITALS: Ht 185.4 cm; Wt 136.5 kg
[~2018-03-29 11:06] MED LIST changes: +PROAIR HFA8.5 GM IH
[2018-03-29 12:41] LABS: HEMATOCRIT 32.9 % (38.0-50.0); HEMOGLOBIN 11.2 G/DL (12.5-16.6); MCH 29.6 PG (29.0-34.0); MCV 86.8 FL (86-99); PLATELET COUNT 234 K/uL (156-360); RBC DIS.WIDTH-CV 13.8 % (11.8-14.6); RBC DIS.WIDTH-SD 44.1 % (39-53); RED BLOOD COUNT 3.79 M/uL (4.00-5.50); WHITE BLOOD COUNT 6.5 K/uL (4.1-10.2)
[2018-03-29 12:49] LABS: CHLORIDE 105 mEq/L (99-109); POTASSIUM 4.4 mEq/L (3.7-5.4); SODIUM 139 mEq/L (136-147)
[2018-03-29 12:51] LABS: GLUCOSE 138 mg/dL (70-99)
[2018-03-29 12:54] LABS: CREATININE 1.9 mg/dL (0.6-1.3); GFR ESTIMATE (CALCULATED) 46 mL/min/ (58.99-99999)
[2018-03-29 12:55] LABS: UREA NITROGEN (BUN) 20 mg/dL (9-23)
[2018-03-29 16:19] VITALS: BP 156/88
[2018-03-29 16:45] VITALS: BP 155/88
[2018-03-30] VITALS: BP 158/83
[2018-03-30 06:11] LABS: HEMOGLOBIN 12.4 G/DL (12.5-16.6); MCH 28.6 PG (29.0-34.0); MCHC 32.6 G/DL (30.0-36.0); MCV 87.6 FL (86-99); PLATELET COUNT 264 K/uL (156-360); RBC DIS.WIDTH-CV 14.2 % (11.8-14.6); RBC DIS.WIDTH-SD 45.6 % (39-53); RED BLOOD COUNT 4.34 M/uL (4.00-5.50); WHITE BLOOD COUNT 4.3 K/uL (4.1-10.2)
[2018-03-30 07:00] LABS: ALBUMIN 3.8 G/DL (3.2-4.8); ALKALINE PHOSPHATASE 47 IU/L (3-129); ALT (GPT) 40 IU/L (3-49); AST (GOT) 27 IU/L (2-34); CHLORIDE 100 MEQ/L (99-109); CREATININE 1.8 MG/DL (0.6-1.3); GFR ESTIMATE (CALCULATED) 49 mL/min/ (58.99-99999); GLUCOSE 153 mg/dL (70-99); POTASSIUM 4.9 MEQ/L (3.7-5.4); SODIUM 138 MEQ/L (136-147); TOTAL BILIRUBIN 0.5 MG/DL (0.0-1.0); TOTAL PROTEIN 6.3 G/DL (6.4-8.3); UREA NITROGEN (BUN) 22 mg/dL (9-23)
[2018-03-30 07:58] VITALS: BP 178/79
[2018-03-30] MEDS ORDERED: MONTELUKAST SOD10 MG PO (14:11)
[2018-03-30] MEDS ORDERED: MELATONIN10 M1 PO (14:12)
[2018-03-30] MEDS ORDERED: TYLENOL ARTHRI650 MG PO (14:13)
[2018-03-30 15:53] VITALS: BP 145/69
[2018-03-31] VITALS: BP 161/72
[2018-03-31 05:18] LABS: BASOPHIL (%) 0.2 % (0-1); EOSINOPHIL (%) 5.6 % (0-5); EOSINOPHIL COUNT 0.3 K/uL (0-0.3); HEMATOCRIT 34.8 % (38.0-50.0); HEMOGLOBIN 11.3 G/DL (12.5-16.6); IMMATURE GRANULOCYTE (%) 0.7 % (0.0-0.7); LYMPHOCYTE (%) 20.9 % (15-42); LYMPHOCYTE COUNT 1.3 K/uL (1.0-2.8); MCH 28.5 PG (29.0-34.0); MCHC 32.5 G/DL (30.0-36.0); MCV 87.7 FL (86-99); MONOCYTE (%) 10.5 % (3-12); MONOCYTE COUNT 0.6 K/uL (0-0.8); NEUTROPHIL (%) 62.1 % (45-76); NEUTROPHIL COUNT 3.8 K/uL (1.8-6.4); PLATELET COUNT 253 K/uL (156-360); RBC DIS.WIDTH-CV 14.3 % (11.8-14.6); RBC DIS.WIDTH-SD 46.1 % (39-53); RED BLOOD COUNT 3.97 M/uL (4.00-5.50); WHITE BLOOD COUNT 6.1 K/uL (4.1-10.2)
[2018-03-31 06:18] LABS: CHLORIDE 102 MEQ/L (99-109); CREATININE 1.9 MG/DL (0.6-1.3); GFR ESTIMATE (CALCULATED) 46 mL/min/ (58.99-99999); GLUCOSE 115 mg/dL (70-99); POTASSIUM 4.6 MEQ/L (3.7-5.4); SODIUM 137 MEQ/L (136-147); UREA NITROGEN (BUN) 22 mg/dL (9-23)
[2018-03-31 06:28] LABS: HEMOGLOBIN A1c (GLYCOHEMOGLOB) 8.3 % (Below 5.7)
[2018-03-31 07:15] VITALS: BP 140/62
[2018-03-31 16:21] VITALS: BP 149/75
[2018-04-01 00:03] VITALS: BP 145/64
[2018-04-01 05:46] LABS: BASOPHIL (%) 0.2 % (0-1); EOSINOPHIL (%) 6.6 % (0-5); EOSINOPHIL COUNT 0.4 K/uL (0-0.3); HEMATOCRIT 34.8 % (38.0-50.0); HEMOGLOBIN 11.3 G/DL (12.5-16.6); IMMATURE GRANULOCYTE (%) 0.9 % (0.0-0.7); LYMPHOCYTE (%) 26.7 % (15-42); LYMPHOCYTE COUNT 1.5 K/uL (1.0-2.8); MCH 28.4 PG (29.0-34.0); MCHC 32.5 G/DL (30.0-36.0); MCV 87.4 FL (86-99); MONOCYTE (%) 13.4 % (3-12); MONOCYTE COUNT 0.8 K/uL (0-0.8); NEUTROPHIL (%) 52.2 % (45-76); PLATELET COUNT 249 K/uL (156-360); RBC DIS.WIDTH-SD 45.1 % (39-53); RED BLOOD COUNT 3.98 M/uL (4.00-5.50); WHITE BLOOD COUNT 5.7 K/uL (4.1-10.2)
[2018-04-01 06:11] LABS: CHLORIDE 100 MEQ/L (99-109); CREATININE 1.9 MG/DL (0.6-1.3); GFR ESTIMATE (CALCULATED) 46 mL/min/ (58.99-99999); GLUCOSE 136 mg/dL (70-99); POTASSIUM 4.8 MEQ/L (3.7-5.4); SODIUM 134 MEQ/L (136-147); UREA NITROGEN (BUN) 22 mg/dL (9-23)
[2018-04-01 08:10] VITALS: BP 176/93
[2018-04-01] MEDS ORDERED: PRAVASTATIN SOD80 MG PO (12:41)
[2018-04-01] MEDS ORDERED: CEFEPIME HCL2 GM IV (12:41)
[2018-04-01] MEDS ORDERED: NOVOLOG MI100 UNIT/3 SC ×2 (12:44)
[2018-04-01] MEDS ORDERED: ENDOCET 5-3251 EACH PO (12:46)
== END 2018-04-01 16:04 | disposition home or self-care (01) | DRG 540 ==
LOC: EME 11:06 → 5SOUTH 14:45 → EDOF 14:45 → ENRESERV 15:02 → 5SOUTH 16:00
PROVIDERS: Internal Medicine; Nurse Practitioner Family; Student in an Organized Health Care Education/Training Program
PROC: 5A09357 Assistance with Respiratory Ventilation, Less than 24 Consecutive Hours, Continuous Positive Airway Pressure (ICD-10-PCS; principal; 2018-03-29)
DX: M86.461 Chronic osteomyelitis with draining sinus, right tibia and fibula (principal); L03.115 Cellulitis of right lower limb; B96.5 Pseudomonas (aeruginosa) (mallei) (pseudomallei) as the cause of diseases classified elsewhere; I12.9 Hypertensive chronic kidney disease with stage 1 through stage 4 chronic kidney disease, or unspecified chronic kidney disease; E11.22 Type 2 diabetes mellitus with diabetic chronic kidney disease; N18.3 Chronic kidney disease, stage 3 (moderate); E11.622 Type 2 diabetes mellitus with other skin ulcer; L97.919 Non-pressure chronic ulcer of unspecified part of right lower leg with unspecified severity; E11.65 Type 2 diabetes mellitus with hyperglycemia; G47.33 Obstructive sleep apnea (adult) (pediatric); Z99.81 Dependence on supplemental oxygen; E78.5 Hyperlipidemia, unspecified; I87.8 Other specified disorders of veins; J44.9 Chronic obstructive pulmonary disease, unspecified; K21.9 Gastro-esophageal reflux disease without esophagitis; M19.90 Unspecified osteoarthritis, unspecified site; Z88.0 Allergy status to penicillin; Z79.4 Long term (current) use of insulin; Z79.51 Long term (current) use of inhaled steroids; Z79.82 Long term (current) use of aspirin; Z87.828 Personal history of other (healed) physical injury and trauma; Z83.3 Family history of diabetes mellitus; Z82.49 Family history of ischemic heart disease and other diseases of the circulatory system
CPT/HCPCS: 73720; 76937; 80048; 80053; 82948; 83036; 85025; 85027; 87040; 87070; 87075; 87076; 87077; 87186; 87205; 94640; 94640 76; 94660; 99202; 99281; 99285; C9113; J0692; J1644; J1815; J1956; J2543; J3370; J7050

== ENCOUNTER 2018-05-19 14:08 | Inpatient (IN) | payer OTHER, BC ==
[~2018-05-19] VITALS: Ht 185.4 cm; Wt 138.6 kg
[~2018-05-19 14:08] MED LIST changes: +CEFEPIME HCL2 GM IV; +ENDOCET 5-3251 EACH PO; +MELATONIN10 M1 PO; +MONTELUKAST SOD10 MG PO; +NOVOLOG MI100 UNIT/3 SC; +PRAVASTATIN SOD80 MG PO; +SYMBICORT60 INHALA1 IH; -SYMBICORT60 INHALAT IH; +TYLENOL ARTHRI650 MG PO
[2018-05-19 16:52] LABS: HEMATOCRIT 34.9 % (38.0-50.0); HEMOGLOBIN 11.7 G/DL (12.5-16.6); MCH 29.1 PG (29.0-34.0); MCHC 33.5 G/DL (30.0-36.0); MCV 86.8 FL (86-99); PLATELET COUNT 259 K/uL (156-360); RBC DIS.WIDTH-CV 13.7 % (11.8-14.6); RBC DIS.WIDTH-SD 43.1 % (39-53); RED BLOOD COUNT 4.02 M/uL (4.00-5.50)
[2018-05-19 17:01] LABS: CHLORIDE 102 mEq/L (99-109); POTASSIUM 4.6 mEq/L (3.7-5.4); SODIUM 138 mEq/L (136-147)
[2018-05-19 17:02] LABS: GLUCOSE 122 mg/dL (70-99)
[2018-05-19 17:06] LABS: CREATININE 2.1 mg/dL (0.6-1.3); GFR ESTIMATE (CALCULATED) 41 mL/min/ (58.99-99999)
[2018-05-19 17:07] LABS: UREA NITROGEN (BUN) 31 mg/dL (9-23)
[2018-05-19] MEDS ORDERED: NOVOLOG MI100 UNIT/3 SC ×2 (18:35)
[2018-05-19] MEDS ORDERED: PERCOCET 5/31 TABLET PO (18:36)
[2018-05-19] MEDS ORDERED: PRAVACHOL40 MG PO (18:37)
[2018-05-19] MEDS ORDERED: VICTOZA 2-0.6 MG/0.1 SC (18:38)
[2018-05-19] MEDS ORDERED: LEVAQUIN750 MG PO (18:38)
[2018-05-19] MEDS ORDERED: HYDROXYZINE PAM25 MG PO (18:38)
[2018-05-19] MEDS ORDERED: LEXAPRO10 MG PO (18:38)
[2018-05-19 22:35] VITALS: BP 166/88
[2018-05-19 23:12] VITALS: BP 136/71
[2018-05-20 06:00] LABS: HEMATOCRIT 34.7 % (38.0-50.0); HEMOGLOBIN 11.5 G/DL (12.5-16.6); MCH 28.7 PG (29.0-34.0); MCHC 33.1 G/DL (30.0-36.0); MCV 86.5 FL (86-99); PLATELET COUNT 267 K/uL (156-360); RBC DIS.WIDTH-CV 13.7 % (11.8-14.6); RBC DIS.WIDTH-SD 43.4 % (39-53); RED BLOOD COUNT 4.01 M/uL (4.00-5.50); WHITE BLOOD COUNT 5.9 K/uL (4.1-10.2)
[2018-05-20 06:14] LABS: CHLORIDE 101 MEQ/L (99-109); CREATININE 1.9 MG/DL (0.6-1.3); GFR ESTIMATE (CALCULATED) 46 mL/min/ (58.99-99999); GLUCOSE 107 mg/dL (70-99); POTASSIUM 4.5 MEQ/L (3.7-5.4); SODIUM 137 MEQ/L (136-147); UREA NITROGEN (BUN) 26 mg/dL (9-23)
[2018-05-20 07:12] VITALS: BP 130/60
[2018-05-20 16:59] VITALS: BP 128/69
[2018-05-20 22:56] VITALS: BP 124/59
[2018-05-21 06:07] LABS: HEMATOCRIT 33.7 % (38.0-50.0); HEMOGLOBIN 11.3 G/DL (12.5-16.6); MCH 28.8 PG (29.0-34.0); RED BLOOD COUNT 3.92 M/uL (4.00-5.50)
[2018-05-21 06:08] LABS: BASOPHIL (%) 0.8 % (0-1); EOSINOPHIL (%) 6.4 % (0-5); EOSINOPHIL COUNT 0.3 K/uL (0-0.3); IMMATURE GRANULOCYTE (%) 0.4 % (0.0-0.7); LYMPHOCYTE (%) 27.7 % (15-42); LYMPHOCYTE COUNT 1.4 K/uL (1.0-2.8); MCHC 33.5 G/DL (30.0-36.0); MONOCYTE (%) 12.6 % (3-12); MONOCYTE COUNT 0.6 K/uL (0-0.8); NEUTROPHIL (%) 52.1 % (45-76); NEUTROPHIL COUNT 2.6 K/uL (1.8-6.4); PLATELET COUNT 256 K/uL (156-360); RBC DIS.WIDTH-CV 13.5 % (11.8-14.6); RBC DIS.WIDTH-SD 42.3 % (39-53)
[2018-05-21 06:30] LABS: ALBUMIN 3.7 G/DL (3.2-4.8); ALKALINE PHOSPHATASE 38 IU/L (3-129); ALT (GPT) 28 IU/L (3-49); AST (GOT) 27 IU/L (2-34); C-REACTIVE PROTEIN 27.4 MG/L (0-10); CHLORIDE 101 MEQ/L (99-109); CREATININE 1.9 MG/DL (0.6-1.3); GFR ESTIMATE (CALCULATED) 46 mL/min/ (58.99-99999); GLUCOSE 153 mg/dL (70-99); POTASSIUM 4.4 MEQ/L (3.7-5.4); SODIUM 135 MEQ/L (136-147); TOTAL BILIRUBIN 0.7 MG/DL (0.0-1.0); TOTAL PROTEIN 6.5 G/DL (6.4-8.3); UREA NITROGEN (BUN) 28 mg/dL (9-23)
[2018-05-21 07:36] VITALS: BP 130/63
[2018-05-21 08:01] LABS: ERTH.SED.RATE 56 MM/HR (0-20)
[2018-05-21 15:15] VITALS: BP 113/59
[2018-05-21 23:08] VITALS: BP 167/70
[2018-05-22 00:21] VITALS: BP 142/65
[2018-05-22 07:38] VITALS: BP 115/57
[2018-05-22 09:34] LABS: CHLORIDE 100 MEQ/L (99-109); CREATININE 2.1 MG/DL (0.6-1.3); GFR ESTIMATE (CALCULATED) 41 mL/min/ (58.99-99999); GLUCOSE 271 mg/dL (70-99); POTASSIUM 4.3 MEQ/L (3.7-5.4); SODIUM 133 MEQ/L (136-147); UREA NITROGEN (BUN) 37 mg/dL (9-23)
[2018-05-22 15:18] VITALS: BP 130/84
[2018-05-22 22:31] VITALS: BP 140/72
[2018-05-23 07:02] VITALS: BP 161/80
[2018-05-23 07:09] VITALS: BP 133/64
[2018-05-23 16:30] VITALS: BP 166/95
[2018-05-23 23:43] VITALS: BP 133/69
[2018-05-24 05:37] LABS: CHLORIDE 101 MEQ/L (99-109); CREATININE 2.2 MG/DL (0.6-1.3); GFR ESTIMATE (CALCULATED) 39 mL/min/ (58.99-99999); GLUCOSE 145 mg/dL (70-99); POTASSIUM 4.6 MEQ/L (3.7-5.4); SODIUM 137 MEQ/L (136-147); UREA NITROGEN (BUN) 35 mg/dL (9-23)
[2018-05-24 07:05] VITALS: BP 142/69
[2018-05-24 15:19] VITALS: BP 150/67
[2018-05-24 23:03] VITALS: BP 119/76
[2018-05-25 07:22] VITALS: BP 141/65
[2018-05-25 07:22] LABS: CHLORIDE 102 MEQ/L (99-109); CREATININE 2.1 MG/DL (0.6-1.3); GFR ESTIMATE (CALCULATED) 41 mL/min/ (58.99-99999); GLUCOSE 173 mg/dL (70-99); POTASSIUM 4.9 MEQ/L (3.7-5.4); SODIUM 134 MEQ/L (136-147); UREA NITROGEN (BUN) 38 mg/dL (9-23)
[2018-05-25 15:36] VITALS: BP 148/79
[2018-05-26 00:21] VITALS: BP 123/72
[2018-05-26 07:07] VITALS: BP 139/70
[2018-05-26 14:15] VITALS: BP 130/67
[2018-05-26 15:13] LABS: CHLORIDE 103 MEQ/L (99-109); CREATININE 1.8 MG/DL (0.6-1.3); GFR ESTIMATE (CALCULATED) 49 mL/min/ (58.99-99999); GLUCOSE 158 mg/dL (70-99); POTASSIUM 5.1 MEQ/L (3.7-5.4); SODIUM 136 MEQ/L (136-147); UREA NITROGEN (BUN) 33 mg/dL (9-23)
[2018-05-26 19:25] VITALS: BP 146/67
[2018-05-26 19:59] VITALS: BP 139/62
[2018-05-26 23:16] VITALS: BP 142/89
[2018-05-27 03:25] VITALS: BP 105/59
[2018-05-27 04:06] VITALS: BP 149/70
[2018-05-27 06:29] LABS: CHLORIDE 103 MEQ/L (99-109); CREATININE 1.7 MG/DL (0.6-1.3); GFR ESTIMATE (CALCULATED) 52 mL/min/ (58.99-99999); GLUCOSE 146 mg/dL (70-99); SODIUM 136 MEQ/L (136-147); UREA NITROGEN (BUN) 30 mg/dL (9-23)
[2018-05-27 08:26] VITALS: BP 141/65
[2018-05-27 12:10] VITALS: BP 132/73
[2018-05-27] MEDS ORDERED: LEVAQUIN750 MG PO (15:42)
[2018-05-27] MEDS ORDERED: NIFEDIPINE ER30 MG PO (16:05)
[2018-05-27 16:35] VITALS: BP 126/64
== END 2018-05-27 17:55 | disposition home health service (06) | DRG 253 ==
LOC: EME 14:08 → EDOF 20:39 → 5EAST 20:39 → ENRESERV 20:42 → CANRESERV 20:42 → ENRESERV 20:59 → 5EAST 22:13 → ENRESERV 22:27 → 5EAST 22:27 → ENRESERV 05-26 13:26 → 4EAST 05-26 14:10
PROVIDERS: Hospitalist; Internal Medicine; Internal Medicine Nephrology; Nurse Practitioner Family; Physician Assistant
PROC: 5A09357 Assistance with Respiratory Ventilation, Less than 24 Consecutive Hours, Continuous Positive Airway Pressure (ICD-10-PCS; principal; 2018-05-19)
PROC: 047T3ZZ Dilation of Right Peroneal Artery, Percutaneous Approach (ICD-10-PCS; 2018-05-26)
DX: I70.233 Atherosclerosis of native arteries of right leg with ulceration of ankle (principal); N17.9 Acute kidney failure, unspecified; E11.622 Type 2 diabetes mellitus with other skin ulcer; L97.319 Non-pressure chronic ulcer of right ankle with unspecified severity; B96.5 Pseudomonas (aeruginosa) (mallei) (pseudomallei) as the cause of diseases classified elsewhere; E11.51 Type 2 diabetes mellitus with diabetic peripheral angiopathy without gangrene; E11.22 Type 2 diabetes mellitus with diabetic chronic kidney disease; G47.33 Obstructive sleep apnea (adult) (pediatric); J44.9 Chronic obstructive pulmonary disease, unspecified; K21.9 Gastro-esophageal reflux disease without esophagitis; N18.3 Chronic kidney disease, stage 3 (moderate); E66.01 Morbid (severe) obesity due to excess calories; Z68.41 Body mass index [BMI] 40.0-44.9, adult; E78.5 Hyperlipidemia, unspecified; I12.9 Hypertensive chronic kidney disease with stage 1 through stage 4 chronic kidney disease, or unspecified chronic kidney disease; F32.9 Major depressive disorder, single episode, unspecified; M77.30 Calcaneal spur, unspecified foot; Z79.4 Long term (current) use of insulin; Z79.82 Long term (current) use of aspirin
CPT/HCPCS: 73590; 80048; 80053; 82948; 83605; 85025; 85027; 85651; 86140; 87040; 87070; 87075; 87077; 87186; 87205; 93971; 94640; 94660; 94799; 99281; 99284; C1725; C1760; C1769; C1887; C1894; J0692; J1644; J1815; J2250; J3010; J7030; Q0177